=== PATIENT | female | born 1940 | race Caucasian/White ===

== ENCOUNTER 2017-07-27 08:00 | Inpatient (IN) | payer OTHER, MEDICARE ==
[2017-07-20 12:36] VITALS: BMI 26.9
--- NOTE | 2017-07-27 07:50 | HP ---
Admitting History and Physical - Admission Chief Complaint: left knee osteoarthritis x years History of Present Illness: 77-year-old female presenting in regard to her left knee. Long-standing history of knee osteoarthritis. Patient complains of pain, limited range of motion, difficulty ambulating, and difficulty completing activities of daily living. Patient has failed conservative treatment including PO medication, injections, activity modification, and exercise program. Patient would like to proceed with a left total knee arthroplasty, MAKOplasty. History Source: Patient - Past Medical History Endocrine: Yes: Hypothyroidism - Past Surgical History Additional Past Surgical History: See written history and physical. - Advance Directives Advance Directives: Yes: Health Care Proxy - Smoking History Smoking history: Former smoker Have you smoked in the past 12 months: No Aproximately how many cigarettes per day: 2 If you are a former smoker, when did you quit?: 1989 - Alcohol/Substance Use Hx Alcohol Use: Yes (RARE WINE ON A HOLIDAY) Home Medications - Allergies Allergies/Adverse Reactions: Allergies Allergy/AdvReac Type Severity Reaction Status Date / Time No Known Allergies Allergy Verified 07/20/17 12:24 - Home Medications Home Medications: Ambulatory Orders Levothyroxine [Synthroid -] 112 mcg PO DAILY 07/20/17 Review of Systems - Review of Systems Musculoskeletal: reports: Crepitus (left knee), Decreased ROM (left knee), Joint Pain (left knee), Joint Swelling (left knee) Physical Examination Constitutional: Yes: Well Nourished, No Distress Eyes: Yes: Conjunctiva Clear HENT: Yes: Atraumatic, Normocephalic Neck: Yes: Supple Cardiovascular: Yes: Regular Rate and Rhythm Respiratory: Yes: Regular Gastrointestinal: Yes: Soft ...Rectal Exam: Yes: Deferred Musculoskeletal: Yes: Joint Stiffness (left knee), Joint Swelling (left knee) Assessment/Plan 77-year-old female presenting in regard to her left knee. Long-standing history of left knee osteoarthritis. Patient complains of pain, limited range of motion , difficulty ambulating, and difficulty completing activities of daily living. Patient has failed conservative treatment including PO medication, injections, activity modification, and exercise program. Pros, cons, wrists, and benefits of a left total knee arthroplasty, MAKOplasty were explained in detail to the patient. Patient confirms her understanding and wishes to proceed with a left total knee arthroplasty, MAKOplasty.
[2017-07-27] MEDS ORDERED: TRANEXAMIC ACID 1000 MG/10 ML VIAL IVPUSH ONE (08:32)
[2017-07-27] MEDS ORDERED: ROPIVICAINE 0.2%/MORPH PF/KETOROLAC - 51ML DISP.SYRINGE IA ONE ×4 (08:32→17:33)
[2017-07-27] MEDS ORDERED: oxyCODONE HCL 10 MG SUSTAINED ACTING TABLET PO ONE (08:32)
[2017-07-27] MEDS ORDERED: CELECOXIB 200 MG CAPSULE PO ONE (08:32)
[2017-07-27] MEDS ORDERED: CEFAZOLIN 1 GM/D5W 1 GRAM/50 ML BAG IVPB ONE (08:32)
[2017-07-27] MEDS ORDERED: GABAPENTIN 300 MG CAPSULE (FP) PO ONE (08:32)
[2017-07-27] MEDS ORDERED: PANTOPRAZOLE 40 MG TABLET (FP) PO ONE (08:33)
[2017-07-27] MEDS ORDERED: DEXAMETHASONE SOD PHOSPHATE/PF 10 MG/ML SDV ONE (11:10)
[2017-07-27] MEDS ORDERED: BUPIVACAINE LIPOSOME/PF (EXPAREL) 266 MG/20 ML VIAL ONE (11:10)
[2017-07-27] MEDS ORDERED: MIDAZOLAM HCL 2 MG/2 ML SINGLE DOSE VIAL ONE (11:11)
[2017-07-27] MEDS ORDERED: BUPIVACAINE HCL/PF 0.5% (5MG/ML) 10 ML VIAL ONE (12:33)
[2017-07-27] MEDS ORDERED: PROPOFOL 20 ML ONE ×6 (12:34)
[2017-07-27] MEDS ORDERED: TRANEXAMIC ACID 1000 MG/10 ML VIAL ONE ×3 (12:44→17:35)
[2017-07-27] MEDS ORDERED: VANCOMYCIN 1,000 MG VIAL (RESTRICTED TO ID ONLY) ONE (12:44)
[2017-07-27] MEDS ORDERED: ceFAZolin SODIUM 1 GM VIAL ONE (12:44)
[2017-07-27] MEDS ORDERED: oxyCODONE HCL 5 MG TABLET PO PRN ×2 (18:02)
[2017-07-27] MEDS ORDERED: PROMETHAZINE HCL 25 MG/1 ML VIAL IVPUSH PRN (18:02)
[2017-07-27] MEDS ORDERED: ONDANSETRON 4 MG/2 ML VIAL IVPUSH PRN (18:02)
[2017-07-27] MEDS ORDERED: MAGNESIUM HYDROX 2400MG/30ML ORAL SUSPENSION 30 ML CUP PO PRN (18:07)
[2017-07-27] MEDS ORDERED: MAG HYDROX/AL HYDROX/SIMETH 30 ML UNIT-DOSE CUP PO PRN (18:07)
--- NOTE | 2017-07-27 18:07 | OP ---
Operative Note - Note: Operative Date: 07/27/17 Pre-Operative Diagnosis: Left knee OA Operation: MAKOplasty left TKA Post-Operative Diagnosis: Same as Pre-op Surgeon: Cristian Lake [employer]: Mercedes Mojica Anesthesia: Spinal Estimated Blood Loss (mls): 100
[2017-07-27] MEDS ORDERED: ACETAMINOPHEN 1000 MG/100 ML VIAL (NON FORMULARY) IVPB ONE (18:12)
[2017-07-27] MEDS ORDERED: LACTATED RINGERS SOLUTION 1,000 ML IV SCH (18:15)
[2017-07-27] MEDS: KETOROLAC TROMETHAMINE 30 MG/1 ML VIAL IVPUSH SCH (18:20)
[2017-07-27] MEDS: traMADol HCL 50 MG TABLET PO SCH (18:30)
[2017-07-27] MEDS: ONDANSETRON 4 MG/2 ML VIAL IVPUSH PRN (19:38)
[2017-07-27] MEDS: ACETAMINOPHEN 325 MG TABLET (FP) PO SCH (20:00)
[2017-07-27] MEDS: SENNOSIDES/DOCUSATE COMBO (SENNA PLUS) TABLET (UD) PO SCH (21:40)
[2017-07-27] MEDS: GABAPENTIN 300 MG CAPSULE (FP) PO SCH (21:41)
[2017-07-27] MEDS: ASCORBIC ACID 500 MG TABLET (FP) PO SCH (21:41)
[2017-07-27] MEDS: CELECOXIB 200 MG CAPSULE PO SCH (21:41)
[2017-07-27] MEDS: oxyCODONE HCL 10 MG SUSTAINED ACTING TABLET PO SCH (21:41)
[2017-07-27] MEDS ORDERED: GABAPENTIN 300 MG CAPSULE (FP) PO SCH (22:00)
[2017-07-28] MEDS: traMADol HCL 50 MG TABLET PO SCH ×4 (00:01→17:55)
[2017-07-28] MEDS: ACETAMINOPHEN 325 MG TABLET (FP) PO SCH ×4 (00:02→17:55)
[2017-07-28] MEDS: KETOROLAC TROMETHAMINE 30 MG/1 ML VIAL IVPUSH SCH ×2 (00:02→06:20)
[2017-07-28] MEDS ORDERED: CEFAZOLIN 1 GM/D5W 1 GM/50 ML BAG IVPB ONE ×2 (00:45→06:30)
[2017-07-28] MEDS ORDERED: DEXAMETHASONE SOD PHOSPHATE 10 MG/1 ML VIAL IVPB ONE (01:00)
[2017-07-28] MEDS: ONDANSETRON 4 MG/2 ML VIAL IVPUSH PRN (06:18)
[2017-07-28] MEDS: LEVOTHYROXINE NA 112 MCG TABLET (FP) PO SCH (06:19)
[2017-07-28] MEDS: ASPIRIN 325 MG TABLET PO SCH (08:06)
[2017-07-28 08:27] LABS: HEMATOCRIT 32.8 % (32.4-45.2); HEMOGLOBIN 11.6 GM/dl (10.7-15.3); MCHC 35.4 g/dl (32.0-36.0); MEAN CELL VOLUME 87.7 fl (80-96); MEAN PLT VOLUME 7.2 fl (7.5-11.1); PLATELET COUNT 271 K/MM3 (134-434); RBC 3.75 M/mm3 (3.60-5.2); RDW 13.3 % (11.6-15.6); WHITE BLOOD COUNT 11.9 K/mm3 (4.0-10.8)
[2017-07-28 08:45] LABS: ANION GAP 4 (8-16); BLOOD UREA NITROGEN 19 mg/dl (7-18); CALCIUM 8.4 mg/dl (8.4-10.2); CHLORIDE 107 mmol/L (98-107); CO2 25 mmol/L (22-28); CREATININE 0.8 mg/dl (0.6-1.3); GLUCOSE,RANDOM 162 mg/dl (74-106); POTASSIUM 4.1 mmol/L (3.5-5.1); SODIUM 136 mmol/L (136-145)
[2017-07-28] MEDS: MULTIVITAMINS (DAILY MVI) TABLET (FP) PO SCH (10:06)
[2017-07-28] MEDS: CELECOXIB 200 MG CAPSULE PO SCH ×2 (10:06→21:49)
[2017-07-28] MEDS: PANTOPRAZOLE 40 MG TABLET (FP) PO SCH (10:06)
[2017-07-28] MEDS: GABAPENTIN 300 MG CAPSULE (FP) PO SCH ×2 (10:06→21:49)
[2017-07-28] MEDS: ASCORBIC ACID 500 MG TABLET (FP) PO SCH ×2 (10:06→21:49)
[2017-07-28] MEDS: SENNOSIDES/DOCUSATE COMBO (SENNA PLUS) TABLET (UD) PO SCH ×2 (10:07→21:49)
--- NOTE | 2017-07-28 14:47 | PN ---
Progress Note (short form) - Note Progress Note: 77F POD1 s/p L TKR under spinal anesthetic and peripheral nerve blocks for post operative pain relief. Pt states that pain is well controlled, reports no anesthetic complications. AVSS. Sensory and motor function intact in bilateral lower extremities. Continue current regimen.
[2017-07-28] MEDS ORDERED: CEFAZOLIN 1 GM/D5W 1 GM/50 ML BAG IVPB SCH (20:30)
[2017-07-28 20:54] VITALS: PULSE 70
[2017-07-28] MEDS: oxyCODONE HCL 10 MG SUSTAINED ACTING TABLET PO SCH (21:50)
--- NOTE | 2017-07-28 23:08 | PN ---
Progress Note (short form) - Note Progress Note: Pt seen and examined. Doing well. AVSS Selected Entries 07/28/17 07/28/17 20:54 22:04 Temperature 98.0 F Pulse Rate 70 Respiratory 18 Rate Blood Pressure 97/50 O2 Sat by Pulse 96 95 Oximetry (%) Laboratory Tests 07/28/17 07/28/17 07:40 07:40 WBC 11.9 H Hgb 11.6 Hct 32.8 Plt Count 271 Sodium 136 Potassium 4.1 Chloride 107 Carbon Dioxide 25 Anion Gap 4 L BUN 19 H Creatinine 0.8 Random Glucose 162 H Calcium 8.4 Gen: NAD LLE: c/d/i, NVID A/P 77yo female POD#1 s/p L DEV TKA 1. PT/OOB 2. D/C in AM after PT; f/u in office in 10-14 days.
--- NOTE | 2017-07-28 23:27 | DS ---
Physical Examination Vital Signs: Vital Signs Temperature 98.0 F 07/28/17 22:04 Pulse Rate 70 07/28/17 22:04 Respiratory Rate 18 07/28/17 22:04 Blood Pressure 97/50 07/28/17 22:04 O2 Sat by Pulse Oximetry (%) 95 07/28/17 22:04 Labs: CBC, BMP 07/28/17 07:40 07/28/17 07:40 Discharge Summary Reason For Visit: LEFT KNEE OSTEOARTHRITIS Current Active Problems Osteoarthritis of left knee (Acute) Procedures: Principal: left DEV TKA Hospital Course: Admitted for elective surgery. Procedure performed without complications. Pt received postoperative antibiotic prophylaxis and DVT ppx. Ambulated with physical therapy. Stable for discharge home with outpatient followup. Condition: Stable - Instructions Diet, Activity, Other Instructions: Dr. Lake - Knee Replacement Instructions Keep the Aquacel dressing on until removed by Dr. Lake in 10-14 days - it is antibacterial and waterproof and you can shower with it on. Call the office for a follow-up appointment with Dr. Lake in 10-14 days. [phone] Take one Aspirin 325mg daily for 6 weeks to prevent blood clots in your legs. Take one Pantoprazole 40mg daily for 6 weeks to protect against heartburn and ulcers. Take Celebrex 200mg once daily for 30 days to reduce swelling and inflammation. Take Cephalexin (antibiotic) 3 times a day for 10 days to protect against skin infection while the wound heals. Take a multivitamin, stool softener, and extra vitamin C supplement daily. For pain: *Mild pain (1-3/10): Take 1 Tramadol tablet every 4 hours as needed. Moderate pain (4-6/10): Take 1 Tramadol tablet and 1 Percocet tablet every 4 hours as needed. Severe pain (7-10/10): Take 1 Tramadol tablet and 2 Percocet tablets every 4 hours as needed. Activity: You can put as much weight on the operative leg as you want. Right after you get home, there will be a physical therapist coming to your house to help you walk around and bend/straighten your knee. After your follow-up appointment, you will be sent for more intensive outpatient physical therapy which will include machines and equipment that the home therapist cannot bring to your house. Always use a walker or cane for balance and to prevent falls. Disposition: [facility]/HOME HEALTH CARE - Home Medications Comprehensive Discharge Medication List: Ambulatory Orders Levothyroxine [Synthroid -] 112 mcg PO DAILY 07/20/17 Ascorbic Acid [Vitamin C -] 500 mg PO BID tablet 07/28/17 Aspirin [ASA -] 325 mg PO DAILY@0800 tablet 07/28/17 Celecoxib [CeleBREX -] 200 mg PO DAILY #30 capsule 07/28/17 Cephalexin [Keflex] 500 mg PO TID #30 capsule 07/28/17 Multivitamins [Multivit ([facility] Formulary)] 1 tab PO DAILY tab 07/28/17 Oxycodone HCl/Acetaminophen [Percocet 5-325 mg Tablet] 1 - 2 tab PO Q4H PRN #60 tablet MDD 8 07/28/17 Pantoprazole Sodium [Protonix -] 40 mg PO DAILY #40 tablet.ec 07/28/17 Sennosides/Docusate Sodium [Pericolace -] 1 tablet PO BID tablet 07/28/17 traMADol HCL [Ultram -] 50 mg PO Q4H PRN #90 tablet MDD 6 07/28/17
[2017-07-29] MEDS: ACETAMINOPHEN 325 MG TABLET (FP) PO SCH ×2 (05:52→06:55)
[2017-07-29] MEDS: traMADol HCL 50 MG TABLET PO SCH ×3 (05:52→12:41)
--- NOTE | 2017-07-29 06:24 | ED.PROV ---
Physicial Exam I saw and examined the patient. - Vital Signs Last Vital Signs Temp Pulse Resp BP Pulse Ox 98.0 F 70 18 97/50 95 07/28/17 22:04 07/28/17 22:04 07/28/17 22:04 07/28/17 22:04 07/28/17 22:04 - Physical Exam Reason for Response: 07/29/17 06:18 At approximately 8pm, I was asked to evaluate patient who sustained mechanical fall while in the bathroom. General Appearance: Yes: Nourished. No: Apparent Distress HEENT: positive: Normal Voice, Symmetrical, Other (atraumatic, normocephalic) Neck: negative: Tender Respiratory/Chest: positive: Lungs Clear Cardiovascular: positive: Regular Rhythm, Regular Rate Musculoskeletal: positive: Other (no tenderness to hips, R knee, ankles bilaterally, +full ROM of R hip and knee. L knee postop - was wrapped, nontender. No midline C/T/L spine ttp.) Extremity: positive: Normal Capillary Refill, Normal Inspection, Normal Range of Motion, Pelvis Stable. negative: Tender, Delayed Capillary Refill, Swelling Neurologic: positive: Fully Oriented, Alert, Normal Mood/Affect, Normal Response , Motor Strength 5/5 Critical Care Time/MDM Note - Medical Decision Making Note: 07/29/17 06:21 Pt was seen at approx 8pm 07/28/17 s/p mechanical fall. Pt was found in bed, well appearing, conversant and in no distress. Airway intact, breathing comfortably, AOx3, GCS 15. Denied head trauma, LOC. Essentially slipped while in the bathroom with her walker and fell onto her R side. Was able to ambulate after the fall and denied pain. Denied head strike, LOC. No midline spinal tenderness to suggest bony spinal injury. Non-tender hip, able to flex hip/knee/ ankle without restriction - very very low suspicion for bony injury. No imaging was ordered. Incident report was completed on the floor and pt was left in good condition.
[2017-07-29 06:50] VITALS: BP 106/51; TEMP 98.1
[2017-07-29] MEDS: LEVOTHYROXINE NA 112 MCG TABLET (FP) PO SCH (06:56)
[2017-07-29 08:46] LABS: HEMATOCRIT 30.2 % (32.4-45.2); HEMOGLOBIN 10.3 GM/dl (10.7-15.3); MEAN CELL VOLUME 88.2 fl (80-96); MEAN PLT VOLUME 7.3 fl (7.5-11.1); PLATELET COUNT 258 K/MM3 (134-434); RBC 3.43 M/mm3 (3.60-5.2); RDW 13.3 % (11.6-15.6); WHITE BLOOD COUNT 9.8 K/mm3 (4.0-10.8)
[2017-07-29 08:48] LABS: ANION GAP 3 (8-16); BLOOD UREA NITROGEN 23 mg/dl (7-18); CALCIUM 8.2 mg/dl (8.4-10.2); CHLORIDE 107 mmol/L (98-107); CO2 27 mmol/L (22-28); GLUCOSE,RANDOM 85 mg/dl (74-106); POTASSIUM 3.7 mmol/L (3.5-5.1); SODIUM 137 mmol/L (136-145)
[2017-07-29 08:55] LABS: CREATININE 0.8 mg/dl (0.6-1.3)
[2017-07-29] MEDS: oxyCODONE HCL 10 MG SUSTAINED ACTING TABLET PO SCH (09:50)
[2017-07-29] MEDS: CELECOXIB 200 MG CAPSULE PO SCH (09:50)
[2017-07-29] MEDS: ASCORBIC ACID 500 MG TABLET (FP) PO SCH (09:51)
[2017-07-29] MEDS: GABAPENTIN 300 MG CAPSULE (FP) PO SCH (09:51)
[2017-07-29] MEDS: ASPIRIN 325 MG TABLET PO SCH (09:52)
[2017-07-29] MEDS: SENNOSIDES/DOCUSATE COMBO (SENNA PLUS) TABLET (UD) PO SCH (09:52)
[2017-07-29] MEDS: PANTOPRAZOLE 40 MG TABLET (FP) PO SCH (09:52)
[2017-07-29] MEDS: MULTIVITAMINS (DAILY MVI) TABLET (FP) PO SCH (09:52)
--- NOTE | 2017-07-30 12:22 | PATH ---
Surgical Pathology Report Patient Name: FLORENCE RICE Med. Rec. #: [id number] /Age/Gender: 1940 (Age: 77) / F Account: [id number] Location: [facility] Taken: 07/27/2017 Received: 07/27/2017 Reported: 07/30/2017 Physicians: Cristian Lake M.D. Specimen(s) Received LEFT KNEE BONE TISSUE Clinical History Osteoarthritis left knee Final Diagnosis BONE AND SOFT TISSUE, KNEE, LEFT, TOTAL KNEE REPLACEMENT MAKOPLASTY: BONE WITH DEGENERATIVE JOINT DISEASE AND FIBROADIPOSE TISSUE. Electronically Signed Florence Hernandez M.D. Gross Description Received in formalin labeled "left knee bone and soft tissue," is a 10.5 x 10.0 x 3.0 cm aggregate of multiple guardado, irregular portions of bone and soft tissue. The tibial plateau measures 7.0 x 4.5 x 1.5 cm. There is a 3.5 cm greatest dimension area of eburnation identified. Remaining articular surfaces are guardado-yellow and diffusely granular. The underlying trabecular bone is yellow and hard. Truant Officer sections are submitted in one cassette, following decalcification. 07/29/201707/29/2017
== END 2017-07-29 12:23 | disposition home health service (06) | DRG 470 ==
LOC: FM/S 09:33
PROVIDERS: ADMIT Student in an Organized Health Care Education/Training Program; ATTEND Student in an Organized Health Care Education/Training Program
PROC: 8E0Y0CZ Robotic Assisted Procedure of Lower Extremity, Open Approach (ICD-10-PCS; 2017-07-27)
PROC: 0SRD0JZ Replacement of Left Knee Joint with Synthetic Substitute, Open Approach (ICD-10-PCS; principal; 2017-07-27 14:14)
DX: M17.12 Unilateral primary osteoarthritis, left knee (principal); E03.9 Hypothyroidism, unspecified; Z87.891 Personal history of nicotine dependence
CPT/HCPCS: 36415; 73560-TC-LT-FY; 80048; 85027; 88304-TC; 88311-TC; 94010; 94760; 97116-GP; 97162-GP; J1100